=== PATIENT | female | born 1955 | race Two or more races ===

== ENCOUNTER 2019-10-01 06:21 | Day surgery (SDC) | payer BC ==
[~2019-10-01 06:21] MED LIST: Acetaminophen TAB* 325 MG PO PRN
[2019-10-01] MEDS ORDERED: Midazolam* 1 MG/ML 2 ML VIAL (2 MG) ONE (07:08)
[2019-10-01] MEDS ORDERED: fentaNYL* 50 MCG/ML 2 ML VIAL (100 MCG VIAL) ONE (07:08)
[2019-10-01 08:05] VITALS: BP 114/62
--- NOTE | 2019-10-01 09:06 | OP ---
DATE OF OPERATION: 10/01/19 - [facility] DATE OF : 57 SURGEON: Zay Gonzalez MD ANESTHESIA: Monitored anesthesia care. PREOPERATIVE DIAGNOSIS: Cataract, right eye. POSTOPERATIVE DIAGNOSIS: Cataract, right eye. OPERATIVE PROCEDURE: Extracapsular cataract extraction of the right eye with intraocular lens implant. IMPLANT: SN60WF 13.0 diopter lens to the right eye. COMPLICATIONS: None. DESCRIPTION OF PROCEDURE: The patient was given phenylephrine 2.5 % and cyclopentolate 1% eye drops to the operative eye in the preoperative area. The patient was taken to the operating room where a time-out was taken to identify the correct patient, site, and side of surgery. The patient's right eye was prepped and draped in the usual sterile fashion with 5% Betadine. A second time- out was taken to verify the correct patient, side, and site of surgery, as well as the correct lens implant. A lid speculum was placed to the right eye. A 1mm paracentesis blade was used to make a clear corneal incision. Preservative-free 1% lidocaine was injected into the anterior chamber. DisCoVisc was then injected into the anterior chamber. A 2.75 mm keratome blade was used to make a triplanar incision. A cystotome initiated a capsulorrhexis, which was completed with Utrata forceps in a continuous and curvilinear manner. Hydrodissection of the lens was performed with BSS on a cannula. The lens could be spun in a capsular bag. The phacoemulsification handpiece was used with a divide-and- conquer technique to remove the nucleus. The I/A handpiece then removed the residual cortical lens material. DisCoVisc was injected to inflate the capsular bag. The planned SN60WF 13.0 diopter lens was injected into the capsular bag. The residual DisCoVisc was removed from the eye with the I/A handpiece. The corneal incisions were hydrated and no leaks occurred at physiologic pressure around 20 mmHg per palpation. The lid speculum was removed and drapes were removed. Maxitrol ointment was placed to the surface of the operative eye. An adhesive patch and shield was then placed on the operative eye. The patient was taken to the postoperative area in stable condition. [id number]/[facility] #: [id number] [facility]
[2019-10-01] MEDS ORDERED: Ketorolac 0.5% OPHTH (NF) 0.5 % 5 ML BTL ONE (11:07)
[2019-10-01] MEDS ORDERED: Phenylephrine OPHTH SOL 2.5%* 2 ML ONE (11:07)
[2019-10-01] MEDS ORDERED: Tropicamide 1% OPTH.SOL* BTL ONE (11:07)
[2019-10-01] MEDS ORDERED: Lidocaine 1% MPF ** 5 ML VIAL ONE (11:07)
[2019-10-01] MEDS ORDERED: Neomycin/Polymy/Dex OPHTH.OIN* 3.5 GM ONE (11:07)
[2019-10-01] MEDS ORDERED: Povidone Iodine 5% OPTH* 30 ML BTL ONE (11:07)
[2019-10-01] MEDS ORDERED: Tetracaine 0.5% OPTH.SOL 4 ML* 1 DROP BTL ONE (11:07)
[2019-10-01] MEDS ORDERED: Cyclopentolate 1% OPTH.SOL* 2 ML BTL ONE (11:07)
[2019-10-01] MEDS ORDERED: acetaZOLAMIDE TAB* 250 MG ONE (11:07)
[2019-10-01] MEDS ORDERED: Buffered Lidocaine 1% SYRIN* 1 ML/SYRINGE INTRADERM ONE (16:27)
== END 2019-10-01 08:20 | disposition home or self-care (01) ==
LOC: OREAST 06:21
PROVIDERS: ATTEND Student in an Organized Health Care Education/Training Program
DX: H25.811 Combined forms of age-related cataract, right eye (principal); F17.210 Nicotine dependence, cigarettes, uncomplicated; E03.9 Hypothyroidism, unspecified; E78.2 Mixed hyperlipidemia; E55.9 Vitamin D deficiency, unspecified; F41.1 Generalized anxiety disorder; Z79.899 Other long term (current) drug therapy
CPT/HCPCS: A9270-GY; J2250; J3010; V2632

== ENCOUNTER 2019-10-08 06:15 | Day surgery (SDC) | payer BC ==
[2019-10-08] MEDS ORDERED: Midazolam* 1 MG/ML 2 ML VIAL (2 MG) ONE ×2 (07:19→07:33)
[2019-10-08 08:25] VITALS: BP 118/73
--- NOTE | 2019-10-08 10:35 | OP ---
DATE OF OPERATION: 10/08/2019 - [facility] DATE OF : 1955. SURGEON: Zay Gonzalez MD ANESTHESIA: Monitored anesthesia care. PREOPERATIVE DIAGNOSIS: Cataract, left eye. POSTOPERATIVE DIAGNOSIS: Cataract, left eye. OPERATIVE PROCEDURE: Extracapsular cataract extraction of the left eye with intraocular lens implant. IMPLANT: SN60WF 13.0 diopter lens to the left eye. COMPLICATIONS: None. DESCRIPTION OF PROCEDURE: The patient was given phenylephrine 2.5 % and cyclopentolate 1% eye drops to the operative eye in the preoperative area. The patient was taken to the operating room where a time-out was taken to identify the correct patient, site, and side of surgery. The patient's left eye was prepped and draped in the usual sterile fashion with 5% Betadine. A second time- out was taken to verify the correct patient, side, and site of surgery, as well as the correct lens implant. A lid speculum was placed to the left eye. A 1mm paracentesis blade was used to make a clear corneal incision. Preservative-free 1% lidocaine was injected into the anterior chamber. DisCoVisc was then injected into the anterior chamber. A 2.75 mm keratome blade was used to make a triplanar incision. A cystotome initiated a capsulorrhexis, which was completed with Utrata forceps in a continuous and curvilinear manner. Hydrodissection of the lens was performed with BSS on a cannula. The lens could be spun in a capsular bag. The phacoemulsification handpiece was used with a divide-and- conquer technique to remove the nucleus. The I/A handpiece then removed the residual cortical lens material. DisCoVisc was injected to inflate the capsular bag. The planned SN60WF 13.0 diopter lens was injected into the capsular bag. The residual DisCoVisc was removed from the eye with the I/A handpiece. The corneal incisions were hydrated and no leaks occurred at physiologic pressure around 20 mmHg per palpation. The lid speculum was removed and drapes were removed. Maxitrol ointment was placed to the surface of the operative eye. An adhesive patch and shield was then placed on the operative eye. The patient was taken to the postoperative area in stable condition. [id number]/[facility] #: [id number] [facility]
[2019-10-08] MEDS ORDERED: Neomycin/Polymy/Dex OPHTH.OIN* 3.5 GM ONE (12:57)
[2019-10-08] MEDS ORDERED: Tetracaine 0.5% OPTH.SOL 4 ML* 1 DROP BTL ONE (12:57)
[2019-10-08] MEDS ORDERED: Phenylephrine OPHTH SOL 2.5%* 2 ML ONE (12:57)
[2019-10-08] MEDS ORDERED: Lidocaine 1% MPF ** 5 ML VIAL ONE (12:57)
[2019-10-08] MEDS ORDERED: acetaZOLAMIDE TAB* 250 MG ONE (12:57)
[2019-10-08] MEDS ORDERED: Ketorolac 0.5% OPHTH (NF) 0.5 % 5 ML BTL ONE (12:57)
[2019-10-08] MEDS ORDERED: Povidone Iodine 5% OPTH* 30 ML BTL ONE (12:57)
[2019-10-08] MEDS ORDERED: Tropicamide 1% OPTH.SOL* BTL ONE (12:57)
[2019-10-08] MEDS ORDERED: Cyclopentolate 1% OPTH.SOL* 2 ML BTL ONE (12:57)
== END 2019-10-08 08:15 | disposition home or self-care (01) ==
LOC: OREAST 06:15
PROVIDERS: ATTEND Student in an Organized Health Care Education/Training Program
DX: H25.812 Combined forms of age-related cataract, left eye (principal); F17.210 Nicotine dependence, cigarettes, uncomplicated; F41.8 Other specified anxiety disorders; M54.9 Dorsalgia, unspecified
CPT/HCPCS: A9270-GY; J2250; V2632

== ENCOUNTER 2023-11-24 11:46 | Observation (INO) ==
[2023-11-24 13:42] LABS: Urine Appearance Extra Turbid; Urine Bacteria Absent /HPF (Absent); Urine Bilirubin Negative (Negative); Urine Blood 3+ (Negative); Urine Color Brown; Urine Glucose Negative (Negative); Urine Ketones 1+ (Negative); Urine Nitrite Negative (Negative); Urine Protein 2+ (>=100 mg/dL) (Negative); Urine Red Blood Cell 3+(>10/hpf) /HPF (0-Trace); Urine Specific Gravity 1.029 (1.002-1.030); Urine Squamous Epithelial Cell Present /HPF (Absent); Urine Urobilinogen Negative (Negative); Urine White Blood Cell 1+(6-10/hpf) /HPF (0-Trace); Urine pH 5.5 (5.0-8.0)
[2023-11-24] MEDS: Lactated Ringers 1000 ml BAG 1,000 ML IV ONE (13:52)
[2023-11-24] MEDS: Metoclopramide 5 MG/ML VIAL (10 mg) IV SLOW PU ONE (13:53)
[2023-11-24 14:08] LABS: ABS Basophils 0.1 10^3/uL (0.0-0.1); ABS Eosinophils 0.2 10^3/uL (0.0-0.5); ABS Lymphocytes 1.8 10^3/uL (1.0-4.8); ABS Monocytes 1.5 10^3/uL (0.0-0.9); ABS Neutrophils 14.6 10^3/uL (1.5-7.6); Eosinophil % 1.1 %; Hematocrit 42.8 % (35-45); Hemoglobin 14.4 g/dL (11.5-14.3); Lymphocyte % 10.1 %; Mean Corpuscular Hemoglobin 29.8 pg (27-33); Mean Corpuscular Hgb Conc 33.5 g/dL (31-36); Mean Corpuscular Volume 88.9 fL (80-97); Mean Platelet Volume 7.7 fL (7.5-11.2); Platelet Count 218 10^3/uL (150-450); Red Blood Count 4.82 10^6/uL (3.63-4.92); Red Cell Distribution Width 14.2 % (12-17); White Blood Count 18.3 10^3/uL (3.8-11.8)
[2023-11-24 14:18] LABS: Activated Partial Thrombo Time 32.2 seconds (26.0-38.0); INR 1.05 (0.83-1.13)
[2023-11-24 14:38] LABS: Albumin 3.9 g/dL (3.2-5.2); Albumin/Globulin Ratio 1.6 (1-3); C Reactive Protein 5.83 mg/L (<8.01); Calcium 9.2 mg/dL (8.6-10.3); Creatinine, Serum 0.87 mg/dL (0.51-0.95); Globulin 2.4 g/dL (2-4); Potassium 3.6 mmol/L (3.5-5.0); Total Bilirubin 0.4 mg/dL (0.2-1.0); Total Protein 6.3 g/dL (6.4-8.9)
[2023-11-24 14:44] LABS: HCG Pregnancy 5.65 mIU/mL
[2023-11-24] MEDS: Iohexol 300 (CONTRAST) 10 ML SDV IV ONE (15:04)
[2023-11-24] MEDS: cefTRIAXone 1 gm/50 mL D5W 1 GM/50 ML BAG IV ONE (15:54)
[2023-11-24] MEDS: Nicotine PATCH 14 MG/24 HR PATCH TRANSDERM ONE (15:54)
[2023-11-24] MEDS ORDERED: Ondansetron 4 mg VIAL 2 MG/ML 2 ml VIAL IV PRN (16:15)
[2023-11-24] MEDS ORDERED: Metoclopramide 5 MG/ML VIAL (10 mg) IV SLOW PU PRN (16:17)
[2023-11-24] MEDS ORDERED: fentaNYL 100 mcg/2 ml 50 MCG/ML VIAL IV SLOW PU PRN (16:19)
[2023-11-24] MEDS: Prochlorperazine 5 mg/ml 2 ml VIAL (10 mg) IV PRN (17:01)
[2023-11-24] MEDS: Lactated Ringers 1000 ml BAG 1,000 ML IV SCH (17:02)
[2023-11-24] MEDS ORDERED: Iohexol 180 (CONTRAST) 10 ML SDV IV ONE (17:25)
[2023-11-24] MEDS ORDERED: Propofol 10 MG/ML 20 ML BTL ONE (17:41)
[2023-11-24] MEDS ORDERED: Lidocaine 2% PF 5 ML VIAL ONE (17:42)
[2023-11-24] MEDS ORDERED: cefTRIAXone 1 gm/50 mL D5W 0 GM/0 ML BAG IV ONE (17:45)
[2023-11-24] MEDS ORDERED: fentaNYL 100 mcg/2 ml 50 MCG/ML VIAL ONE (18:02)
[2023-11-24] MEDS ORDERED: Naloxone 0.4 mg VIAL 0.4 mg/ml 1 ml VIAL IV PRN (19:42)
[2023-11-24] MEDS: Nicotine GUM 2MG FRUIT FLAVOR PO ONE (21:39)
[2023-11-24] MEDS: Nicotine GUM 2MG FRUIT FLAVOR PO PRN (21:40)
[2023-11-25 06:42] LABS: Calcium 8.6 mg/dL (8.6-10.3); Creatinine, Serum 0.71 mg/dL (0.51-0.95); Potassium 3.4 mmol/L (3.5-5.0); eGFR CKD-EPI 93.1 (>60)
[2023-11-25] MEDS: Nicotine PATCH 14 MG/24 HR PATCH TRANSDERM SCH (06:50)
[2023-11-25] MEDS: Nicotine PATCH 14 MG/24 HR PATCH ONE (07:36)
[2023-11-25 08:27] LABS: ABS Eosinophils 0.2 10^3/uL (0.0-0.5); ABS Lymphocytes 2.1 10^3/uL (1.0-4.8); ABS Monocytes 0.9 10^3/uL (0.0-0.9); ABS Neutrophils 8.1 10^3/uL (1.5-7.6); Eosinophil % 1.4 %; Hematocrit 39.8 % (35-45); Hemoglobin 13.3 g/dL (11.5-14.3); Lymphocyte % 18.3 %; Mean Corpuscular Hemoglobin 29.6 pg (27-33); Mean Corpuscular Hgb Conc 33.4 g/dL (31-36); Mean Corpuscular Volume 88.7 fL (80-97); Mean Platelet Volume 8.3 fL (7.5-11.2); Platelet Count 212 10^3/uL (150-450); Red Blood Count 4.49 10^6/uL (3.63-4.92); Red Cell Distribution Width 14.1 % (12-17); White Blood Count 11.3 10^3/uL (3.8-11.8)
[2023-11-25] MEDS: Potassium Chlor 20 meq TAB.ER PO ONE (09:57)
[2023-11-25 10:07] VITALS: BP 163/80
[2023-11-25] MEDS ORDERED: cefTRIAXone 1 gm/50 mL D5W 1 GM/50 ML BAG IV SCH (16:00)
== END 2023-11-25 11:45 | disposition home or self-care (01) ==
LOC: ED 11:46 → EDHOLD 11:46 → SUATTDRO 16:15 → SSU 17:12
PROVIDERS: ADMIT Student in an Organized Health Care Education/Training Program; ATTEND Internal Medicine